=== PATIENT | female | born 1975 | race Two or more races ===

== ENCOUNTER 2019-09-22 13:09 | Emergency (ER) | payer OTHER, MEDICAID ==
[~2019-09-22] VITALS: Ht 162.6 cm; Wt 59.0 kg
[2019-09-22 13:25] VITALS: BP 106/64
== END 2019-09-22 15:30 | disposition home or self-care (01) ==
LOC: ER 13:10
DX: R51 Headache (principal); Z98.51 Tubal ligation status; V49.59XA Passenger injured in collision with other motor vehicles in traffic accident, initial encounter; Y93.89 Activity, other specified; Y92.413 State road as the place of occurrence of the external cause; Y99.9 Unspecified external cause status
CPT/HCPCS: 99281